=== PATIENT | male | born 1945 | race Caucasian/White ===

== ENCOUNTER 2021-08-13 18:15 | Outpatient (CLI) | payer MEDICARE, SELFPAY ==
--- NOTE | ~2021-08-13 | MR_ITS ---
. EXAMINATION: MR brain/brain stem wo/w con DATE: 08/13/2021 19:15 INDICATION: Paralytic strabismus. Diplopia. TECHNIQUE: Magnetic resonance imaging (MRI) of the brain and brainstem was performed without and with 20 mL MultiHance intravenous contrast. Sequences included sagittal and axial T1-weighted FSE, axial diffusion-weighted FS EPI, axial T2*-weighted GRE, axial T2-weighted FLAIR Propeller, and axial T2-we ighted Propeller. Postcontrast sequences included axial, sagittal, and coronal T1-weighted FSE. Appar ent diffusion coefficient (ADC) maps were created. COMPARISON: Brain MRI 05/19/2014, head CT 05/19/2014 FINDINGS: There are scattered areas of nonspecific increased T2-weighted signal intensity in the cere bral white matter, which is within normal limits for the patient's age. There are old lacunar infarct s in the left basal ganglia and emani. There is no intracranial hemorrhage, acute infarction, or abnor mal intracranial mass lesion. The ventricles are normal in size. The orbits are normal. There is muco ann thickening in the paranasal sinuses. The mastoid air cells are normal. IMPRESSION: 1. Old lacunar infarcts in the left basal ganglia and emani. Reviewed, dictated and finalized at location A.
[2021-08-13 18:48] LABS: Estimated Glomerular Filt Rate > 60
== END 2021-08-13 18:16 | disposition home or self-care (01) ==
LOC: ANHIMG 18:24
PROVIDERS: PCP Family Medicine Adolescent Medicine
DX: H49.3 Total (external) ophthalmoplegia (principal); Z86.73 Personal history of transient ischemic attack (TIA), and cerebral infarction without residual deficits
CPT/HCPCS: 70553; A9577

== ENCOUNTER 2022-02-13 09:46 | Emergency (ER) | payer MEDICARE, SELFPAY ==
--- NOTE | ~2022-02-13 | XR_ITS ---
EXAMINATION: XR soft tissue neck DATE: 02/13/2022 10:44 INDICATION: Dysphagia. TECHNIQUE: 2 views of the neck soft tissues were obtained. COMPARISON: None. FINDINGS: The adenoids, palatine tonsils, prevertebral soft tissues, epiglottis, and airway are barbara l. No radiopaque foreign body. IMPRESSION: 1. No etiology for the patient's symptoms. Reviewed, dictated and finalized at location B.
[2022-02-13 10:00] VITALS: BP 135/75; PULSE 74; RESP 16; TEMP 36; O2SAT 98
--- NOTE | 2022-02-13 10:08 | ED.URI ---
HPI - URI/Sore Throat General Chief Complaint: Upper Respiratory Infection Stated Complaint: Sore Throat Time Seen by Provider: 02/13/22 10:08 Source: patient and RN notes reviewed Mode of arrival: ambulatory Limitations: no limitations History of Present Illness HPI Narrative: 76 y/o male with hx Diabetes and new dx myesthenia gravis presented for c/o phlegm in throat since yesterday. Endorses sinus drainage and hoarse voice. Took sudafed. Denies cough, sob, wheezing, tongue swelling, throat pain, sinus pressure, n/v/d/f/c. Vaccinated for covid and flu. MD elicited complaint: cough Related Data Home Medications Medication Instructions Recorded Confirmed aspirin 81 mg tablet,delayed 81 mg PO DAILY 01/15/22 02/13/22 release insulin glargine 100 unit/mL 30 unit SUBCUT DAILY ml 01/15/22 02/13/22 subcutaneous solution Allergies Allergy/AdvReac Type Severity Reaction Status Date / Time No Known Allergies Allergy Mild Verified 02/13/22 10:00 Review of Systems Review of Systems: CONSTITUTIONAL: denies malaise, chills, sweats, fever EYES: Denies visual changes, redness, or discharge ENT: Reports rhinorrhea, sore throat/phlegm denies congestion, sinus pain, otalgia CARDIOVASCULAR: Denies chest pain, palpitations, edema RESPIRATORY: Reports cough, post nasal drainage. Denies dyspnea GASTROINTESTINAL: Denies abdominal pain, nausea, vomiting, diarrhea SKIN: Denies rash or itching MUSCULOSKELETAL: denies myalgia NEUROLOGIC: Denies headache PMFSH Past Medical History Medical History IDDM (insulin dependent diabetes mellitus) Stroke Type II diabetes mellitus Family History Family History Other Asthma Cerebrovascular accident Diabetes mellitus Hypertension Social History Social History Social History: never smoker Smoking status: Never smoker Alcohol intake: never Exam Narrative: GENERAL: well-appearing HEAD: Normocephalic EYES: PERRLA, conjunctivae clear ENT: Mucous membranes moist. TM pearly husain with dull light reflex bilaterally; no tragal tenderness. Oropharynx erythematous with edematous midline uvula, mild pharyngeal swelling and hoarse/muffled voice, without lesions or exudate, no drooling, no hoarseness, no trismus. No tripod positioning, soft palate or pharyngeal wall bulging NECK: Supple. No lymphadenopathy CHEST: Clear to auscultation, breath sounds equal. No wheezing, rhonchi, rales, or stridor. No respiratory distress, speaks in full sentences. HEART: Regular rate and rhythm. No murmur heard. SKIN: Warm, dry, no rash. NEURO: Alert and oriented x3. PSYCH: Normal mood and affect Course Course Emergency Course: Patient is aware of diagnosis, understands and agrees to treatment plan. Anticipatory guidance given. Patient agrees to follow-up as directed and is aware of reasons to seek care at the emergency department. Portions of this record may have been created with voice recognition software Level of Care: Express Care Visit Vital Signs Vital signs: Vital Signs Temperature 96.8 F L 02/13/22 10:00 Pulse Rate 74 02/13/22 10:00 Respiratory Rate 16 02/13/22 10:00 Blood Pressure 135/75 02/13/22 10:00 Pulse Oximetry 98 02/13/22 10:00 Temperature 96.8 F L 02/13/22 10:00 Pulse Rate 74 02/13/22 10:00 Respiratory Rate 16 02/13/22 10:00 Blood Pressure 135/75 02/13/22 10:00 Pulse Oximetry 98 02/13/22 10:00 reviewed MDM - URI/Sore Throat MDM Narrative Medical decision making narrative: Pt presented with c/o sensation of phlegm in throat this morning, able to swallow secretions and speak in full sentences, no sob/wheezing/distress noted. Xray soft tissue neck to r/o epiglottitis- unremarkable. strep negative. Steroid given in office. Reports improvement in symptoms. He is advised o
[2022-02-13] MEDS: methylPREDNISolone SOD SUCC 125 MG VIAL IM (10:32)
== END 2022-02-13 11:15 | disposition home or self-care (01) ==
PROVIDERS: Emergency Provider Nurse Practitioner Family; PCP Family Medicine Adolescent Medicine
DX: K12.2 Cellulitis and abscess of mouth (principal); J02.9 Acute pharyngitis, unspecified; G70.00 Myasthenia gravis without (acute) exacerbation; E11.9 Type 2 diabetes mellitus without complications; Z79.4 Long term (current) use of insulin; Z86.73 Personal history of transient ischemic attack (TIA), and cerebral infarction without residual deficits; Z79.82 Long term (current) use of aspirin
CPT/HCPCS: 70360; 87081; 87880; 96372; 99213; G0463; J2930

== ENCOUNTER 2023-10-17 09:25 | Outpatient (CLI) | payer MEDICARE, SELFPAY | END 2023-10-17 09:26 | disposition home or self-care (01) | LOC: ANHAUDIO 09:25 | PROVIDERS: PCP Family Medicine Adolescent Medicine; Visit Provider Nurse Practitioner Family | DX: H93.11 Tinnitus, right ear (principal); H90.3 Sensorineural hearing loss, bilateral | CPT/HCPCS: 92557; 92567 ==

== ENCOUNTER 2023-12-08 07:17 | Outpatient (CLI) | payer MEDICARE, SELFPAY ==
--- NOTE | ~2023-12-08 | MR_ITS ---
EXAMINATION: MR IAC wo/w con DATE: 12/08/2023 08:21 INDICATION: Other specified hearing loss, bilateral. TECHNIQUE: Magnetic resonance imaging (MRI) of the brain, brainstem, and internal auditory canals was performed without and with 19 mL MultiHance intravenous contrast. COMPARISON: Brain MRI 08/13/2021 FINDINGS: There are old infarcts involving the left basal ganglia and emani. There are scattered areas of nonspecific increased T2-weighted signal intensity in the cerebral white matter, which is within normal limits for the patient's age. There is no intracranial hemorrhage, acute infarction, or abnorm al intracranial mass lesion. The ventricles are normal in size. The orbits are normal. There is mild mucosal thickening in the paranasal sinuses. The internal auditory canals, inner ears, and tympanic c avities are normal. The mastoid air cells are normal. IMPRESSION: 1. Old infarcts involving the left basal ganglia and emani. Reviewed, dictated and finalized at location A. [employer]
== END 2023-12-08 07:18 | disposition home or self-care (01) ==
PROVIDERS: PCP Family Medicine Adolescent Medicine; Visit Provider Otolaryngology
DX: H91.8X3 Other specified hearing loss, bilateral (principal)
CPT/HCPCS: 70553; A9577